=== PATIENT | male | born 1935 | race Hispanic/Latino ===

== ENCOUNTER → 2017-09-20 | Outpatient (CLI) | payer OTHER ==
[~2017-09-20] MED LIST: ATORVASTATIN CA10 MG PO; CLOPIDOGREL75 MG PO; HYDROXYCHLOROQ200 MG PO; LATANOPROST2.5 ML OP; LISINOPRIL30 MG PO; METOPROLOL SUC200 MG PO
[2017-09-20 12:13] LABS: FOLATE 12.5 ng/mL (7.0-15.4)
--- NOTE | 2017-09-22 12:39 | Diagnostic Imaging Report ---
Examination: MRI BRAIN WITHOUT CONTRAST History: Memory loss. Dementia. Comparison studies: Head CT performed August 24, 2017. Technique: Sagittal, axial and coronal T1; axial DWI, FLAIR, GRE or SWI Intravenous contrast: None Findings: Scalp: No abnormal signal. No masses. Bone marrow: Normal in signal intensity. Brain volume: Moderate volume loss for age. Ventricles: No hydrocephalus. Extra-axial spaces: No abnormalities. Parenchyma: There are confluent and patchy areas of T2/FLAIR hyperintensity in the periventricular and subcortical white matter, nonspecific. 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 No masses, hemorrhage, or acute vascular insults. Suprasellar and sellar region: Partially CSF filled sella. Craniocervical junction: No abnormalities. The foramen magnum is patent. No Chiari malformations. Vessels: Normal flow-voids in the arteries and sinuses. Additional findings:Bilateral slitlike orbital lenses. IMPRESSION: 1. No acute intracranial abnormalities, specifically, no acute infarct. 2. Moderate chronic microvascular ischemic change and volume loss. Chronic lucent infarcts, as above Signed by: Dr. Lissette Coleman M.D. on 09/22/2017 12:36 PM
== END | disposition home or self-care (01) ==
LOC: MRI 10:46
PROVIDERS: ATTEND Specialist
DX: F03.90 Unspecified dementia, unspecified severity, without behavioral disturbance, psychotic disturbance, mood disturbance, and anxiety (principal); I67.82 Cerebral ischemia; I63.9 Cerebral infarction, unspecified
CPT/HCPCS: 36415; 70551; 82607; 82746; 84443